=== PATIENT | male | born 1940 | race Caucasian/White ===

== ENCOUNTER 2018-10-01 11:24 | Outpatient (CLI) | payer MEDICARE, SELFPAY ==
--- NOTE | 2018-10-01 11:20 | DI.RAD_ITS ---
SYMPTOMS/DIAGNOSIS: 1 WK COUGH, ? PNEUMONIA, R05 PA AND LATERAL CHEST: The heart size is normal. The aorta is mildly tortuous. There is mild scarring at the lung bases. No focal infiltrate or effusion is seen. IMPRESSION: No acute abnormality.
== END 2018-10-01 11:44 ==
PROVIDERS: PCP Family Medicine; Visit Provider Family Medicine
DX: R05 Cough (principal)
CPT/HCPCS: 71046